=== PATIENT | female | born 1975 | race Caucasian/White ===

== ENCOUNTER 2025-02-03 05:51 | Day surgery (SDC) | payer BC ==
[2025-01-29 11:55] VITALS: BMI 33.9
[2025-02-03] MEDS ORDERED: MIDAZOLAM HCL 2 MG/2 ML SINGLE DOSE VIAL ONE (09:15)
[2025-02-03] MEDS ORDERED: DEXAMETHASONE SOD PHOSPHATE 4 MG/1 ML VIAL ONE (09:15)
[2025-02-03] MEDS ORDERED: PROPOFOL 20 ML ONE (09:15)
[2025-02-03] MEDS ORDERED: ONDANSETRON 4 MG/2 ML VIAL ONE (09:15)
[2025-02-03] MEDS ORDERED: KETOROLAC TROMETHAMINE 30 MG/1 ML VIAL ONE (09:48)
[2025-02-03] MEDS ORDERED: PROMETHAZINE HCL 25 MG/1 ML VIAL IVPB PRN (10:05)
[2025-02-03] MEDS ORDERED: oxyCODONE HCL 5 MG TABLET PO PRN (10:05)
[2025-02-03] MEDS ORDERED: ONDANSETRON 4 MG/2 ML VIAL IVPUSH PRN (10:05)
[2025-02-03] MEDS: LACTATED RINGERS SOLUTION 1,000 ML IV SCH (10:17)
[2025-02-03] MEDS ORDERED: ACETAMINOPHEN INJECTION 100 ML ONE (10:19)
[2025-02-03] MEDS: ACETAMINOPHEN 1000 MG/100 ML BAG IVPB PRN (10:20)
[2025-02-03 11:34] VITALS: RESP 20
[2025-02-03] MEDS ORDERED: oxyCODONE HCL 5 MG TABLET ONE (13:00)
[2025-02-03 14:11] VITALS: BP 113/64; PULSE 73; TEMP 98.8
== END 2025-02-03 15:07 | disposition home or self-care (01) ==
LOC: JASU-SURG 05:51
PROVIDERS: ATTEND Obstetrics & Gynecology
PROC: 0UPD8HZ Removal of Contraceptive Device from Uterus and Cervix, Via Natural or Artificial Opening Endoscopic (ICD-10-PCS; principal; 2025-02-03 09:00)
PROC: 0UC98ZZ Extirpation of Matter from Uterus, Via Natural or Artificial Opening Endoscopic (ICD-10-PCS; 2025-02-03 09:00)
DX: T83.89XA Other specified complication of genitourinary prosthetic devices, implants and grafts, initial encounter (principal); N91.2 Amenorrhea, unspecified
CPT/HCPCS: 88300-TC; 88305-TC; 94760; J0131